=== PATIENT | male | born 1985 | race African-American/Black ===

== ENCOUNTER 2018-12-29 03:35 | Emergency (ER) | payer MEDICAID ==
[~2018-12-29] VITALS: Ht 177.8 cm; Wt 80.0 kg
[2018-12-29] MEDS ORDERED: LIDOCAINE HCL/PF 1% 10 MG/ML 5ML VIAL IJ ONE (06:00)
[2018-12-29] MEDS ORDERED: BACITRACIN ZINC OINT UDPKT TOP ONE (07:45)
[2018-12-29] MEDS ORDERED: IBUPROFEN 600MG TABLET PO ONE (07:45)
[2018-12-29 07:56] VITALS: BP 110/77
== END 2018-12-29 07:55 | disposition home or self-care (01) ==
LOC: ER 03:35
DX: S61.411A Laceration without foreign body of right hand, initial encounter (principal); J45.909 Unspecified asthma, uncomplicated; F20.9 Schizophrenia, unspecified; F43.10 Post-traumatic stress disorder, unspecified; W26.8XXA Contact with other sharp object(s), not elsewhere classified, initial encounter; Y93.89 Activity, other specified; Y92.89 Other specified places as the place of occurrence of the external cause; Y99.8 Other external cause status
CPT/HCPCS: 12001; 73130; 99283; J3490; Z7610